=== PATIENT | female | born 2000 | race Caucasian/White ===

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

== ENCOUNTER 2023-02-28 14:21 | Outpatient (CLI) | payer OTHER, SELFPAY ==
[2023-02-28 14:58] LABS: Hematocrit 38.3 % (37.0-47.0); Hemoglobin 12.3 g/dL (12.0-15.0)
== END 2023-02-28 14:22 | disposition home or self-care (01) ==
PROVIDERS: Visit Provider Obstetrics & Gynecology
DX: Z01.818 Encounter for other preprocedural examination (principal); N92.6 Irregular menstruation, unspecified
CPT/HCPCS: 36415; 85014; 85018; 86850; 86900; 86901

== ENCOUNTER 2023-03-03 01:34 | Day surgery (SDC) | payer OTHER, SELFPAY ==
--- NOTE | 2023-02-21 14:08 | SUR.PREOP ---
Report to the Outpatient Waiting Room, entrance under the green pavilion located off [facility], at time 0600 on date 03/03/23. Planned Procedure Time: 0730. Time changes happen often and if your time is changed the preop area will call you the afternoon before. - You and your visitor will be asked to self-screen and do not enter if you have any COVID symptoms. - A mask is optional within the hospital at this time. Patients may have clear liquids (water, carbonated beverages, clear teas, apple juice) until 3 hours prior to surgery with a maximum of 20 ounces. - NO CLEAR LIQUIDS AFTER 0430 - No food from midnight until time of surgery - Infants may have breast milk until 4 hours before surgery, infant formula 6 hours prior to surgery. - Children will be allowed to drink immediately following surgery. If applicable, please bring a bottle or sippy cup to assist with drinking. Juice, water, soda, and popsicles are readily available. For infants on formula, please bring formula the day of surgery. Pacifiers are allowed. Take the following medications with a SIP of water the morning of surgery: N/A DO NOT STOP ANY OF YOUR OTHER PRESCRIPTION MEDICATIONS PRIOR TO SURGERY ?EXCEPT THE FOLLOWING Medications to discontinue per physician N/A Date to take last dose N/A Please no make-up, nail sudanese, hairspray, perfume, deodorant, or body powder the day of surgery. No jewelry (including any body piercings) or valuables the day of surgery, leave them at home. Please take a shower or bath the night before, or the morning of, surgery with an antibacterial soap. Wear comfortable, loose fitting clothing. Children are encouraged to wear pajamas. - Jewelry must be removed prior to entering the operating room. Rings and piercings that are not removed may be cut off. - The hospital will not accept responsibility for valuables. - Please leave all valuables, including medications, at home the day of surgery. If you are going home after surgery, a licensed services delivery driver must drive you home. - NO public transportation without another adult if you receive anesthesia. - We recommend that an adult stay with you for 24 hours following discharge. - We also recommend that you do not drive, make important decision, drink alcoholic beverages, or take any drugs that were not prescribed by your health care provider for at least 24 hours after your discharge time. For Pediatric surgeries, we recommend two adults accompany the child home. Follow any additional instructions given to you from your surgeon. If you or anyone in your household have experienced Covid symptoms in the past week, please notify your surgeon or the nurse liaison at the phone number below for possible testing. Telephone instructions given to MCKAY ALBRECHT and asked if any additional questions and then verbalized understanding. Patient advised to call surgeon office or pre surgery nurse liaison [phone] if any additional questions.
[2023-02-21 14:16] VITALS: BMI 18.6
--- NOTE | 2023-03-01 16:34 | P.HP_ITS ---
H&P: HPI History of Present Illness Date/Time: 03/01/23 16:34 Chief Complaint: Pelvic pain and bleeding Narrative: to 23-year-old female 0 who is admitted for diagnostic laparoscopy hysteroscopy dilatation curettage. She has a strong family history of endometriosis. She had ultrasound imaging which showed some fluid in the uterus and otherwise which was unremarkable. In light of the fact that she has not done well with oral contraceptives for the past she opts for hysteroscopy/ laparoscopy/ D& C. Risks and benefits reviewed including not exclusive of , aspiration, bleeding, transfusion, perforation under to bowel, bladder, ureters, or other internal organs with the need for open laparotomy. She received the [facility] handouts entitled laparoscopy, hysteroscopy, dilatation curettage respectively. She had all questions answered and asked to proceed PMFSH Past Medical History Medical History Ear infection Surgical History Surgical History No pertinent past surgical history Family History Family History Father Diabetes mellitus Mother Hypertension Social History Social History Smoking status: Never smoker Substance use: never Gender identity (if verbalized by the patient): Female Spiritual care concerns: No Meds Home Medications and Allergies Home Medications Medication Instructions Recorded Confirmed Type ibuprofen 600 mg tablet 600 mg PO Q6H PRN pain #60 tabs 08/18/20 02/21/23 Rx ferrous sulfate 65 mg PO DAILY 02/21/23 02/21/23 History Allergies Allergy/AdvReac Type Severity Reaction Status Date / Time No Known Allergies Allergy Verified 10/19/20 19:27 Exam Const: General: cooperative, healthy appearing, comfortable and average body habitus Orientation/consciousness: oriented to person, oriented to place and oriented to time HENMT: Head: normal to inspection Resp: Effort & Inspection: normal respiratory effort Cardio: Rate: regular rate Rhythm: regular rhythm Heart sounds: S1 normal heart sound present and S2 normal heart sound present GI: Inspection: normal to inspection : External Female Exam: normal external appearance Speculum Exam - Vagina: normal appearance of the vagina Speculum Exam - Cervix: normal appearance of the cervix Bimanual exam- vagina & uterus: Uterine tenderness Bimanual Exam- Adnexa, other: tender bilaterally Assessment and Plan Assessment and plan (1) Pelvic pain: Code(s): R10.2 - Pelvic and perineal pain Status: Acute (2) Excessive bleeding: Code(s): R58 - Hemorrhage, not elsewhere classified Status: Acute Plan laparoscopy/ hysteroscopy / dilatation and curettage
--- NOTE | 2023-03-02 14:39 | P.PNAN_ITS ---
Anes - Initial Pre Proc Eval Procedure: Operation Date: 03/03/23 07:30 Proposed Procedures p Diagnostic Laparoscopy, Hysteroscopy, Dilatation and Curettage - Tim Mooney MD Date/Time: 03/02/23 14:39 Surgeon: Tim Mooney MD Pre Op Diagnosis: pelvic pain, irreg bleeding, dysmenorrhea Patient Data Age: 23 Gender: F Height: 1.78 m Weight: 58.9 kg Allergies Allergy/AdvReac Type Severity Reaction Status Date / Time No Known Allergies Allergy Verified 10/19/20 19:27 Home Medications Medication Instructions Recorded Confirmed Type ibuprofen 600 mg tablet 600 mg PO Q6H PRN pain #60 tabs 08/18/20 02/21/23 Rx ferrous sulfate 65 mg PO DAILY 02/21/23 03/03/23 History hydrocodone 5 mg-acetaminophen 325 1 tablet PO Q4H PRN pain #20 tabs 03/03/23 Rx mg tablet Patient hx anesthesia problems: none Family hx anesthesia problems: none Results Review: All pre-operative results and documents have been reviewed as part of the pre- operative evaluation. [facility] Past Medical History Medical History (Updated 03/02/23 @ 14:39 by Kameron Santos DO) Anxiety Ear infection Surgical History Surgical History No pertinent past surgical history Family History Family History Father Diabetes mellitus Mother Hypertension Social History Social History Smoking status: Never smoker Substance use: never Gender identity (if verbalized by the patient): Female Spiritual care concerns: No Anes - Eval Final PreProcedure Day of Procedure 03/02/23 14:39 Patient weight: normal Heart: regular rate and rhythm Lungs: clear to auscultation and normal air movement Airway: Mallampati scale class II Neurological: alert and oriented Last oral intake: >/= 8 hours ASA classification: II Emergent: no Anesthetic plan: proceed Anesthesia type and monitoring: general GIVS and standard monitoring Results Review: All pre-operative results and documents have been reviewed as part of the pre- operative evaluation. Informed Consent: The patient's anesthetic plan and its attendant risks and benefits were discussed with the patient/family/POA. Questions were solicited and answers provided to the satisfaction of the patient/family/POA.
[2023-03-03] VITALS (8 sets, daily range): BP systolic 102–141; BP diastolic 62–99; PULSE 53–90; RESP 12–20; TEMP 36.8–36.9; O2SAT 98–100
--- NOTE | 2023-03-03 06:36 | WPDHPUPDATE1 ---
History and Physical Update Update Date/Time: 03/03/23 06:36 History and Physical has been reviewed, including an updated exam of the patient. There are NO changes in the patient's condition. Risks, benefits, and alternatives have been discussed and questions answered. Patient agrees to proceed with procedure.
[2023-03-03] MEDS: ACETAMINOPHEN 500 MG TABLET 1000 MG PO (06:39)
[2023-03-03] MEDS: LACTATED RINGERS 1,000 ML 30 ML IV CONT ×2 (06:45→09:16)
[2023-03-03] MEDS: KETOROLAC 15 MG/ML VIAL (*BKC) IV PUSH (06:47)
--- NOTE | 2023-03-03 07:31 | SUR.PREOP ---
0715-Dr. Michaela Mooney aware pt has psoriasis outbreak at umbilical area-will proceed w/procedure.
--- NOTE | 2023-03-03 08:20 | W.PM.PROC2 ---
Procedure Note - Detailed Date of Procedure 03/03/23 Pre-op Diagnosis pelvic pain, irreg bleeding, dysmenorrhea Post-op Diagnosis Other (Same as preop with endometriosis) Procedure Performed Laparoscopic destruction of endometriosis/hysteroscopy dilatation curettage Surgeon Tim Mooney MD Anesthesia General Indications On laparoscopy an Ariel Masters window was seen in the right lower quadrant. Endometriosis was seen throughout the pelvis. Findings Endometriosis Description of Procedure Patient was prepped draped in normal sterile fashion placed in the dorsal lithotomy position. Under excellent general trach anesthesia weighted speculum placed in posterior fornix vagina. Anterior lip of the cervix grasped with a single-tooth tenaculum. Olsen's cannula inserted the cervix and attached to the single-tooth. These were used later for uterine manipulation. The bladder emptied of clear urine. The weighted speculum was removed. Gloves were changed. An infraumbilical incision was made. Veress needle passed in the abdomen. Abdomen filled with CO2 gas to 15mm Hg. The 5mm trocar advanced under direct visualization assuring no injury. Patient placed in Trendelenburg and a suprapubic incision made. The 5mm trocar advanced under direct visualization assuring no injury. About 10cc of serosanguineous fluid this was irrigated removed. The ovaries and tubes appeared grossly within normal limits although there was an angry appearance to the pelvis secondary to the endometriosis. It was appeared to be multifocal. There were in the right cul-de-sac area was an Ariel Masters window. This was opened with monopolar cautery and areas of endometriosis were grafts and burned. Irrigation undertaken until clear. The appendix gallbladder and liver edge all appeared within normal limits. The instruments were withdrawn. The gas removed from the abdomen and the in trocars removed. The incisions closed with 4-0 Monocryl and glue. Attention was turned to the hysteroscopy. Uterus sounded to 7cm. Serial dilatation fragmented os performed followed by passage of the 5mm visualizing hysteroscope using normal saline as visualizing medium. No abnormalities were seen there was some irregular endometrium. This was scraped over the entire 360? until good grating sound was heard. The instruments were withdrawn and the patient was awakened. She went to recovery in satisfactory condition. All sponge, needle, instrument counts were correct. There were no immediate complications Estimated Blood Loss 5 Drains No Packing No Pathology Yes Complications No immediate complications Condition Stable Disposition PACU
[2023-03-03] MEDS: fentaNYL CITRATE INJ (*CRX) 100 MCG/2 ML VIAL 25 MCG IV PUSH ×7 (09:01→09:33)
[2023-03-03] MEDS: ONDANSETRON INJ 4 MG/2 ML VIAL IV PUSH (10:39)
== END 2023-03-03 11:01 | disposition home or self-care (01) ==
PROVIDERS: Visit Provider Obstetrics & Gynecology
PROC: 0UDB8ZZ Extraction of Endometrium, Via Natural or Artificial Opening Endoscopic (ICD-10-PCS; CPT 58558; principal; 2023-03-03 07:30)
DX: N80.399 Endometriosis of the pelvic peritoneum, other specified sites, unspecified depth (principal); N83.8 Other noninflammatory disorders of ovary, fallopian tube and broad ligament; N92.6 Irregular menstruation, unspecified; N93.9 Abnormal uterine and vaginal bleeding, unspecified; R10.2 Pelvic and perineal pain; N94.6 Dysmenorrhea, unspecified
CPT/HCPCS: 58662; 58558; 36415; 85014; 85018; 86850; 86900; 86901; 88305; A9270; J0330; J1100; J1200; J1885; J2250; J2405; J2704; J3010; J7030; J7120

== ENCOUNTER 2025-03-22 19:13 | Emergency (ER) | payer OTHER, SELFPAY ==
[2025-03-22] VITALS (8 sets, daily range): BP systolic 130–135; BP diastolic 67–81; PULSE 86–127; RESP 16–20; TEMP 36.7; O2SAT 98–100
[2025-03-22 19:36] LABS: BEDSIDEPREGUCG Positive (Negative)
[2025-03-22 19:38] LABS: Hematocrit 38.5 % (37.0-47.0); Hemoglobin 12.6 g/dL (12.0-15.0); Immature Granulocyte Percent A 0.3 % (0-0.5); Lymphocytes Absolute Auto 1.76 K/mm3 (0.9-3.2); Mean Corpuscular HGB Conc 32.7 g/dl (32-36); Mean Corpuscular Hemoglobin 28.1 pg (26-34); Mean Corpuscular Volume 85.7 fl (80-100); Nucleated Red Blood Cells Absolute Auto 0.000 K/mm3 (0.0-0.012); Nucleated Red Blood Cells Perc 0.0 % (0.0-0.2); Platelet Count Result 226 k/mm3 (150-375); Red Blood Count 4.49 M/mm3 (4.2-5.4); White Blood Count 10.3 K/mm3 (4.5-10.0)
[2025-03-22 19:44] LABS: Add Urine Microscopic? YES; Appearance Urine Cloudy (Clear); Glucose Urine UA Negative (Negative); Leukocyte Esterase Ur 1+ LEU/UL (Negative); Nitrate Urine Negative (Negative); Non Pathogenic Casts 0-2; Specific Grav Ur 1.022 (1.001-1.035)
[2025-03-22 19:49] LABS: INR 1.0; Prothrombin Time 13.6 Seconds (11.1-14.7)
[2025-03-22 19:50] LABS: Partial Thromboplastin Time 27.5 Seconds (22.3-36.8)
--- NOTE | 2025-03-22 19:51 | ED_ITS ---
HPI - General Chief complaint: Vaginal Bleeding Stated complaint: vaginal bleeding, 5weeks preg Time Seen by Provider: 03/22/25 19:25 History of Present Illness HPI Narrative: Patient is a 25-year-old female who presents to the ER with concerns of vaginal bleeding during . She reports her last menstrual period was February 12, 2025. Patient reports last night and earlier today she started experiencing abdominal pain and back pain. That has now resolved but she started vaginal bleeding after the pain subsided and has been passing small clots. Patient denies any urinary symptoms, current abdominal pain, recent fevers, or current back pain. She endorses a history of endometriosis but denies any other medical history relevant to this ER visit. Related Data Home Medications ?Medication ?Instructions ?Recorded ?Confirmed ?Last Taken ?Type ferrous sulfate 65 mg PO DAILY 02/21/2302/1503/01/23 History Allergies Allergy/AdvReac Type Severity Reaction Status Date / Time No Known Allergies Allergy Verified 03/22/25 19:19 Review of Systems 2 Review of Systems: All systems reviewed & are unremarkable except as noted in HPI and below PMFSH Past Medical History Medical History Anxiety Ear infection Surgical History Surgical History No pertinent past surgical history Family History Family History Father Diabetes mellitus Mother Hypertension Social History Social History Smoking status: Never smoker Substance use: never Gender identity (if verbalized by the patient): Female Spiritual care concerns: No Exam 2 Narrative: GENERAL: Well appearing, well-nourished, non-toxic, in no acute distress. HEAD: Normocephalic, atraumatic. NECK: Supple. No adenopathy, no masses. RESPIRATORY: Airway patent, respirations nonlabored. Clear to auscultation bilaterally, no rales, rhonchi, wheezing. CARDIOVASCULAR: Regular rate and rhythm without murmurs, rubs, or gallops. Peripheral pulses 2+ and equal bilaterally. ABDOMINAL: Soft, mildly tender lower left quadrant, nondistended, no hepatosplenomegaly. Normoactive BS. MUSCULOSKELETAL: Moves all extremities. Strength/ROM intact without gross deformities. SKIN: Warm, dry, normal color. No rashes. NEURO: A&O X3. Speech clear. Cranial nerves II-XII intact. No ataxic movements. PSYCHIATRIC: Tearful : Pt has a moderate amount of dark red blood in her vaginal canal, bleeding appears to be coming from her cervix. No visible clots. Course Vital Signs Vital signs: Vital Signs Temperature 36.7 C 03/22/25 19:16 Pulse Rate 127 H 03/22/25 19:16 Respiratory Rate 20 03/22/25 19:16 Blood Pressure 132/67 03/22/25 19:16 Pulse Oximetry 99 03/22/25 19:16 Oxygen Delivery Room Air 03/22/25 19:16 Temperature 36.7 C 03/22/25 19:16 Pulse Rate 86 03/22/25 19:29 Respiratory Rate 16 03/22/25 19:29 Blood Pressure 130/76 03/22/25 19:30 Pulse Oximetry 99 03/22/25 20:45 Oxygen Delivery Room Air 03/22/25 19:16 MDM - OB/Uterine Contractions MDM Narrative Medical decision making narrative: Patient is a 25-year-old female who presents to the ER with concerns of vaginal bleeding during . She reports her last menstrual period was February 12, 2025. Patient reports last night and earlier today she started experiencing abdominal pain and back pain. That has now resolved but she started vaginal bleeding after the pain subsided and has been passing small clots. Patient denies any urinary symptoms, current abdominal pain, recent fevers, or current back pain. She endorses a history of endometriosis but denies any other medical history relevant to this ER visit. Labs Ordered: CBC, CMP, UA, beta hCG, PTT, INR, Rh immunoglobulin Imaging Ordered: None necessary (patient's beta hCG level is very low) Medications Ordered: 1 L normal saline IV bolus Results: Patient's CBC indicates white blood cell count of 10.3. Her coags are within normal limits. Patient's chemistry indicates a creatinine is 0.67 and total protein of 8.5. Her urinalysis indicates patient has UTI and significant hematuria. Diagnosis: Threatened miscarriage, urinary tract infection Consults: OBGYN (Dr. Michaela Mooney), outpatient Patient Education/Shared MDM: Results of lab work shared with patient. She will be given a dose of oral antibiotics here in the ER to treat her urinary tract infection. Patient strongly advised to maintain hydration status upon discharge and follow-up with her OBGYN as soon as possible. She will be discharged home with a prescription for Keflex. Strict return precautions provided. Patient verbalized understanding and is in agreement with plan. Vital signs stable at time of discharge. All questions answered. Differential Diagnosis Differential diagnosis: Likely other (Hematuria, urinary tract infection, threatened miscarriage) Lab Data Attestation: I reviewed the patient's lab results. 03/22/25 19:29 03/22/25 19:29 Labs: Lab Results 03/22/25 03/22/25 03/22/25 Range/Units 19:29 19:30 19:34 WBC 10.3 H (4.5-10.0) K/mm3 RBC 4.49 (4.2-5.4) M/mm3 Hgb 12.6 (12.0-15.0) g/dL Hct 38.5 (37.0-47.0) % MCV 85.7 (80-100) fl MCH 28.1 (26-34) pg MCHC 32.7 (32-36) g/dl RDW 13.3 (11.5-14.5) % Plt Count 226 (150-375) k/mm3 MPV 11.0 H (7.4-10.4) fl Immature Gran % (Auto) 0.3 (0-0.5) % Neut % (Auto) 75.6 H (45.5-73.1) % Lymph % (Auto) 17.1 L (18.3-44.2) % [place] % (Auto) 5.5 (2.6-8.5) % Eos % (Auto) 0.8 (0-4.4) % Baso % (Auto) 0.7 (0.2-1.2) % Lymph # (Auto) 1.76 (0.9-3.2) K/mm3 [place] # (Auto) 0.6 (0.1-0.6) K/mm3 Eos # (Auto) 0.1 (0-0.3) K/mm3 Baso # (Auto) 0.1 (0.0-0.1) K/mm3 Abs Immat Gran (auto) 0.03 (0.00-0.031) K/mm3 Absolute Neuts (auto) 7.8 H (1.3-6.7) K/mm3 Absolute Nucleated RBC 0.000 (0.0-0.012) K/mm3 Nucleated RBC % 0.0 (0.0-0.2) % PT 13.6 (11.1-14.7) Seconds INR 1.0 APTT 27.5 (22.3-36.8) Seconds Sodium 138 (137-145) mmol/L Potassium 3.8 (3.4-5.0) mmol/L Chloride 103 (98-107) mmol/L Carbon Dioxide 25 (22-30) mmol/L Anion Gap 10 (4-12) mmol/L BUN 12 (7-17) mg/dL Creatinine 0.67 L (0.7-1.0) mg/dL Estim Creat Clear Calc 92 ml/min Estimated GFR > 60 (59 - ) Glucose 99 (65-110) mg/dL Calcium 9.3 (8.4-10.2) mg/dL Total Bilirubin 0.7 (0.2-1.3) mg/dL AST 31 (14-36) U/L ALT 22 (6-35) U/L Alkaline Phosphatase 63 (38-126) U/L Total Protein 8.5 H (6.3-8.2) g/dL Albumin 4.9 (3.5-5.1) g/dL Beta HCG, Quant 11.81 mIU/ML Urine Color Yellow (Yellow) Urine Appearance Cloudy H (Clear) Urine pH 6.5 (5.0-9.0) Ur Specific [place] 1.022 (1.001-1.035) Urine Protein Trace (Negative) mg/dL Urine Glucose (UA) Negative (Negative) mg/dL Urine Ketones Trace H (Negative) mg/dL Ur Blood (Man) 3+ H (Negative) Urine Nitrate Negative (Negative) Urine Bilirubin Negative (Negative) Urine Urobilinogen 1.0 (<2.0) mg/dL Leukocyte Esterase Rfl 1+ H (Negative) HENOK/UL Urine RBC >100 H (0-2) /hpf Urine WBC 6-10 H (0-3) /hpf Ur Squamous Epith Cells Occasional (Few) /hpf Urine Bacteria Rare /hpf Urine Casts 0-2 POC Urine HCG, Qual Positive (Negative) Blood Type A Positive Antibody Screen Negative Screen Not Reportable Baby's Blood Type Not Reportable Baby's ARTEM Not Reportable Doses of RhIg Required 0 Discharge Plan Discharge Clinical Impression: Threatened , Vaginal bleeding, Urinary tract infection Patient Disposition: Home Condition: Stable Instructions: Antibiotic Form, Threatened Miscarriage (ED), Urinary Tract Infection in (ED) Additional Instructions: Please return to the ER with any worsening symptoms. Follow-up with your OBGYN as soon as possible. Take all medications as prescribed, including regularly scheduled medications. Please complete your full dose of antibiotics. Remember to drink lots of water. Patient Language: Danish Prescriptions: New cephalexin 500 mg capsule 500 mg PO Q8H 7 Days Qty: 21 0RF No Action ibuprofen 600 mg tablet 600 mg PO Q6H PRN (Reason: pain) Qty: 60 0RF ferrous sulfate 65 mg PO DAILY hydrocodone-acetaminophen 5-325 mg tablet 1 tablet PO Q4H PRN (Reason: pain) Qty: 20 0RF Follow-up/Referrals: Tim Garcia MD [Physician, TWISTING PRESS OPERATOR] Referral Note: OBGYN PHYSICIAN,IMPLEMENTATION SERVICES ANALYST [Primary Care Provider, Internal Medicine] Stand Alone Forms: Work/School Release IP Time of Disposition: 22:13
[2025-03-22] MEDS: SODIUM CHLORIDE 0.9% IV 1,000 ML 999 ML IV CONT (19:56)
[2025-03-22 20:04] LABS: Alanine Aminotransferase 22 U/L (6-35); Albumin Level 4.9 g/dL (3.5-5.1); Alkaline Phosphatase 63 U/L (38-126); Anion Gap 10 mmol/L (4-12); Aspartate Amino Transferase 31 U/L (14-36); Bilirubin,Total 0.7 mg/dL (0.2-1.3); Blood Urea Nitrogen 12 mg/dL (7-17); Calcium 9.3 mg/dL (8.4-10.2); Carbon Dioxide 25 mmol/L (22-30); Chloride 103 mmol/L (98-107); Estimated CRCL calculation 92 ml/min; Estimated Glomerular Filt Rate > 60; Glucose 99 mg/dL (65-110); Potassium 3.8 mmol/L (3.4-5.0); Sodium 138 mmol/L (137-145); Total Protein 8.5 g/dL (6.3-8.2)
[2025-03-22 20:17] LABS: Beta HCG Quantitative 11.81 mIU/ML
[2025-03-22] MEDS: CEPHALEXIN 500 MG CAPSULE PO (22:27)
== END 2025-03-22 22:32 | disposition home or self-care (01) ==
PROVIDERS: Emergency Medicine; Emergency Provider Registered Nurse
DX: O20.0 Threatened abortion (principal); Z3A.01 Less than 8 weeks gestation of pregnancy; O23.41 Unspecified infection of urinary tract in pregnancy, first trimester; N39.0 Urinary tract infection, site not specified
CPT/HCPCS: 36415; 80053; 81001; 81025; 84702; 85025; 85461; 85610; 85730; 86850; 86900; 86901; 87086; 96360; 99284; A9270; J7030